=== PATIENT | male | born 1955 | race Caucasian/White ===

== ENCOUNTER → 2022-04-04 10:35 | Outpatient (CLI) | payer OTHER, SELFPAY ==
[2022-04-04 11:41] LABS: COVID19 -Nasal RAPID Negative (Negative)
== END ==
PROVIDERS: Referring Provider Orthopaedic Surgery; Visit Provider Orthopaedic Surgery
DX: Z20.822 Contact with and (suspected) exposure to COVID-19 (principal)
CPT/HCPCS: 87635; C9803

== ENCOUNTER 2022-04-05 11:37 | Day surgery (SDC) | payer OTHER, SELFPAY ==
[2022-03-31 09:55] VITALS: BMI 31.2
[2022-04-05] VITALS (16 sets, daily range): BP systolic 92–134; BP diastolic 37–95; PULSE 60–88; RESP 11–20; TEMP 36.4–37.1; O2SAT 90–95; BMI 31.2
--- NOTE | 2022-04-05 07:34 | DI.RAD.S_ITS ---
PROCEDURE: XR PELVIS 1-2V INDICATIONS: INNER OP LEFT HIP TECHNIQUE: Intra-operative view of the pelvis and hip acquired. COMPARISON: [facility] [place], CR, XR PELVIS WITH LATERAL HIP LEFT, 03/22/2022, 13:20. [facility], CR, XR HIP W PEL IF DONE LT 2V, 04/05/2022, 15:01. FINDINGS: Bones: Intraoperative devices prior to placement of arthroplasty prostheses are in expected positions. No fractures or suspicious bony lesions. Soft tissues: Overlying intraoperative changes. IMPRESSION: Intraoperative images demonstrate arthroplasty components in appropriate positions. Dictated by: Jarvis Murrell M.D. on 04/05/2022 at 16:54 Approved by: Jarvis Murrell M.D. on 04/05/2022 at 16:54
[2022-04-05] MEDS: LACTATED RINGERS 1,000 ML 42 ML IV (12:01)
[2022-04-05] MEDS: ACETAMINOPHEN 325 MG TABLET 975 MG PO (12:02)
[2022-04-05] MEDS: VANCOMYCIN 1,000 MG/200 ML PIGGYBACK 200 MG IV (12:02)
[2022-04-05] MEDS: CELECOXIB 200 MG CAPSULE PO (12:02)
--- NOTE | 2022-04-05 12:31 | PM.PREOP ---
Pre-operative Note COVID-19 COVID-19 status: Negative Interval Note History & Physical reviewed/Exam performed by Physician: Yes Changes to H&P: No
--- NOTE | 2022-04-05 12:31 | PM.OP.1 ---
Operative Date/Time/Diagnoses Date of procedure: 04/05/22 Time of procedure: 12:50 Pre-op diagnosis: Left hip osteoarthritis Post-op diagnosis: same Procedure & Clinicians Procedure: Left total hip arthroplasty Same procedure as scheduled: Yes Indications: The patient has had progressively worsening left hip pain with radiographic changes consistent with arthritis. Non-operative management has failed and the patient has requested total hip replacement. The risks, benefits and alternatives to surgery were discussed with the patient prior to proceeding. Risks discussed included, but were not limited to, failure to relieve pain, leg length discrepancy, dislocation, stiffness, infection, nerve damage, deep venous thrombosis, pulmonary embolism, stroke, coma, heart attack, permanent paralysis and , as well as the potential need for eventual revision of the prosthetic. Surgeon: Faye Mustafa Sanitation Technician: Miller Vargas Anesthesia Type: General and Spinal Operative Notes Findings: Severe left hip osteoarthritis, acceptable stability Closure Type: primary Specimen(s): none sent Prosthetic devices, grafts, tissues, transplants, or devices: Mustafa and nephew size 9 standard offset anthology, 56 mm R3 cup, neutral poly liner, +0 x 36 Oxinium head, one 6.5 mm screw Estimated Blood Loss (mL): 250 Blood products transfused: none Procedure in detail: The patient was seen in the pre-operative area, where the patient identified the left hip as the operative site and this was marked with my initials. The patient received pre-operative antibiotics and was taken to the operating room and placed on the operative table in the right lateral decubitus position after satisfactory anesthesia. A manager multimedia out was performed. The left leg was prepared from the ankle to the iliac crest with ChloroPrep in the usual fashion and draped through sterile drapes. The hip was approached through an approximately 20 cm incision centered over the greater trochanter and curving gently posteriorly as it went proximally. This was carried sharply to the fascia shira, which was divided and retracted with a self retaining retractor. The trochanteric bursa was excised with care being taken to avoid the sciatic nerve, which was identified and protected throughout the case. The short external rotators were incised and the capsulomuscular flap was raised and tagged for later repair. The hip was dislocated, and a femoral neck osteotomy performed approximately 15 mm above the lesser trochanter. Retractors were placed around the femur. The canal was opened with a box cutting osteotome, followed by a T handled reamer and a lateralizing reamer. The chili pepper broach was then used, followed by sequential broaching until there was good stability of the broach in the femur. Retractors were placed to expose the acetabulum. The labrum and central soft tissues were removed. Reaming was performed initially going up in 2 mm increments, then 1 mm increments until good bite was obtained with an odd sized reamer. The cup 1 mm larger than the last reamer was then inserted using the appropriate anteversion guides. It was further stabilized with a single screw. A trial neutral liner was placed. The broach was placed in the canal. A trial head and neck were then placed and the hip relocated and checked for leg length and stability. An intraoperative film confirmed the component position and no evidence of fracture. I ended up doing 2 x-rays and trialing both the standard offset and the high offset option. He had good stability with a standard offset leg lengths looked equal and the intraoperative x-ray showed acceptable offset and leg length. The high offset felt too tight and was not felt to be necessary. The patient was stable in the position of sleep, of squatting, and could be put through a range of motion with 45 degrees internal rotation without dislocation. At 90 degrees flexion, internal rotation to 80? was possible before dislocation. This was felt to be satisfactory and the appropriate components were opened, and the trials were removed. The acetabular liner was impacted into position. The final stem was then impacted into the prepared femoral canal. A brief Betadine soak was performed while trialing with head options. The hip was meticulously irrigated with normal saline. Finally the femoral head was impacted onto the stem. The acetabulum was cleared of all material and the hip relocated one final time. The capsulomuscular flap was then repaired to the greater trochanter though an awl hole using the tag sutures. The short external rotators were repaired with a nonabsorbable suture. A deep drain was placed and brought out anteriorly. The fascia shira was closed with Vicryl. The subcutaneous layer was closed with barbed sutures and surgical glue. An Aquacel Ag dressing was applied and the patient was taken to recovery having tolerated the procedure well. Complications: none Post-operative Condition: stable Disposition: Acute Care Plan for aftercare: The patient will be maintained on a standard total hip replacement protocol with weight bearing as tolerated and posterior hip precautions. The patient will receive Aspirin and sequential compression devices for DVT prophylaxis. The patient will be discharged home when safe for the home environment.
[2022-04-05] MEDS: CEFAZOLIN 2 GM/20 ML SYRINGE IV ×2 (13:05→20:14)
[2022-04-05] MEDS: TRANEXAMIC ACID 1,000 MG VIAL 2000 MG INJ ×2 (13:12→14:29)
--- NOTE | 2022-04-05 13:28 | SUR.OPER ---
Lateral on padded OR bed. Gel axillary roll. Arms secured on padded armboard with pillow supporting top arm. Padded hip positioner braces x4 - anterior and posterior chest and pelvis. Additional gel pad used anterior pelvis. Gel pad under bottom leg from knee to foot and secured with tape over sheet. POSITION APPROVED BY SURGEON AND ANESTHESIA
[2022-04-05] MEDS: BUPIVACAINE 0.5% (PF) 30 ML, EPINEPHrine 0.15 MG INJ (13:37)
[2022-04-05] MEDS: BUPIVACAINE LIPOSOME 266 MG/20 ML VIAL INJ (14:21)
--- NOTE | 2022-04-05 15:30 | DI.RAD.S_ITS ---
PROCEDURE: XR HIP W PEL IF DONE LT 2V INDICATIONS: TOTAL HIP LEFT TECHNIQUE: AP pelvis with lateral view(s) of the left hip(s). COMPARISON: [facility], CR, XR PELVIS 1-2V, 04/05/2022, 14:00. [facility] [place], CR, XR PELVIS WITH LATERAL HIP LEFT, 03/22/2022, 13:20. FINDINGS: Bones: No fractures or dislocations. Pelvic ring appears intact. No suspicious bony lesions. Left hip arthroplasty is present. Soft tissues: The visualized bowel gas pattern is normal. No suspicious soft tissue calcifications. IMPRESSION: Left hip arthroplasty. Dictated by: Padmini Gallegos M.D. on 04/05/2022 at 17:04 Approved by: Padmini Gallegos M.D. on 04/05/2022 at 17:05
--- NOTE | 2022-04-05 15:44 | SUR.PHASEI ---
Patient transferred in bed to room 208 by Gisella MCCLENDON. Pt awake, alert. Transferred with belongings. SBAR report on phone to Yusra MCCLENDON.
[2022-04-05] MEDS: LACTATED RINGERS 1,000 ML 125 ML IV (16:36)
[2022-04-05] MEDS: ACETAMINOPHEN 325 MG TABLET 650 MG PO (17:03)
[2022-04-05] MEDS: IBUPROFEN 400 MG TABLET PO (17:03)
--- NOTE | 2022-04-05 17:14 | PC.NURSE ---
Pt to room 208 via bed from PACU. Pt is awake alert and oriented. Denies pain, has feeling to BLE and able to wiggle his toes. SCD's are on and running. Bed alarm is on for safety and Pt is aware that he must call for assistance as needed and to now get up without help. Pt has a urinal at the bedside. Has been given snacks and water to drink. Oriented to room, call light, bed controls and tv controls. IV infusing as ordered. Pt ate his entire meal without difficulty. Pt denies needs at this time.
[2022-04-05] MEDS: ALBUTEROL 2.5 MG/3 ML NEB (ADULT) INH (19:38)
[2022-04-05] MEDS: OXYCODONE IR 5 MG TABLET PO (20:14)
[2022-04-05] MEDS: ASPIRIN EC 81 MG TABLET PO (20:14)
[2022-04-05] MEDS: SILDENAFIL 20 MG TABLET PO (20:14)
[2022-04-05] MEDS: MIRTAZAPINE 15 MG TABLET PO (20:14)
[2022-04-05] MEDS: DOCUSATE 100 MG CAPSULE PO (20:14)
[2022-04-05] MEDS: PRAVASTATIN 20 MG TABLET 80 MG PO (20:14)
[2022-04-06] MEDS: IBUPROFEN 400 MG TABLET PO ×3 (00:06→11:14)
[2022-04-06] MEDS: ACETAMINOPHEN 325 MG TABLET 650 MG PO ×3 (00:06→11:14)
[2022-04-06 02:23] VITALS: BP 119/52; PULSE 72; RESP 18; TEMP 37.1; O2SAT 95
[2022-04-06] MEDS: CEFAZOLIN 2 GM/20 ML SYRINGE IV (04:49)
[2022-04-06] MEDS: HYDROMORPHONE 2 MG TABLET PO (05:02)
[2022-04-06 05:41] VITALS: BP 123/57; PULSE 80; RESP 17; TEMP 37.1; O2SAT 97
[2022-04-06 06:33] LABS: Hematocrit 36.9 % (41-53); Hemoglobin 12.8 g/dL (13.5-17.5)
[2022-04-06 07:50] VITALS: BP 107/52; PULSE 76; RESP 16; TEMP 36.9; O2SAT 97
[2022-04-06] MEDS: OXYCODONE IR 10 MG TABLET PO (08:13)
[2022-04-06] MEDS: PARoxetine 20 MG TABLET 50 MG PO (08:14)
[2022-04-06] MEDS: DOCUSATE 100 MG CAPSULE PO (08:14)
[2022-04-06] MEDS: ASPIRIN EC 81 MG TABLET PO (08:14)
[2022-04-06] MEDS: dilTIAZem CD 120 MG CAP PO (08:14)
[2022-04-06] MEDS: SILDENAFIL 20 MG TABLET PO (08:14)
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
[2022-04-06] MEDS: ALBUTEROL 2.5 MG/3 ML NEB (ADULT) INH (10:17)
[2022-04-06 10:27] VITALS: RESP 16; O2SAT 96
--- NOTE | 2022-04-06 12:09 | PC.NURSE ---
Pt is dressed and ready for discharge home with Daughter. IV has been removed. Went over d/c instructions with Pt-discussed d/c meds, time of last dose, reviewed stroke education and CHF guidelines sheet, reminded Pt to follow posterior hip precautions, drink plenty of fluids to prevent constipation or dehydration, no driving while on narcotics, s/s of infection, and follow up. Pt and daughter denied further questions and Pt was taken out via w/c by STORES ASSISTANT to POV with daughter and all belongings.
--- NOTE | 2022-04-06 15:09 | CM.DPNOTE ---
Discharge Planning Note: Kenna TORRES in early this morning and wrote discharge orders. Patient discharged back to previous living arrangements this morning before this DCP had a chance to interview him. Chana Arora RN/DCP
== END 2022-04-06 12:27 | disposition home or self-care (01) ==
LOC: OR 11:38 → AC 11:39
PROVIDERS: PCP Nurse Practitioner; Referring Provider Orthopaedic Surgery; Visit Provider Orthopaedic Surgery
PROC: 0SRB0JZ Replacement of Left Hip Joint with Synthetic Substitute, Open Approach (ICD-10-PCS; CPT 27130; principal; 2022-04-05 11:15)
DX: M16.12 Unilateral primary osteoarthritis, left hip (principal); I10 Essential (primary) hypertension; E78.5 Hyperlipidemia, unspecified; F43.10 Post-traumatic stress disorder, unspecified
CPT/HCPCS: 27130; 36415; 72170; 73502; 85014; 85018; 94640; 94762; 97116; 97161; 97530; C1776; C9290; J0171; J0690; J1100; J2250; J2405; J2704; J3010; J7613